=== PATIENT | male | born 1970 | race Caucasian/White ===

== ENCOUNTER 2017-11-06 06:54 | Emergency (ER) | payer BC ==
[~2017-11-06] VITALS: Ht 170.2 cm; Wt 99.8 kg
--- NOTE | 2017-11-06 07:02 | NUR ---
BIBRA 89 FROM HOME C/O CHEST PAIN, TINGLING FEELING ON LEFT ARM, FELT LIKE PASSING OUT 1 [employer] WHILE TAKING A MORNING SHOWER. PT STATES +N/V. AAOX4. SKIN WNL. VSS. PT PLACED ON MANAGER SHIP AND POX. RESP EVEN AND UNLABORED. NO S/S OF ACUTE DISTRES. PT DENIES HAVING ANY CHEST PAIN ON ARRIVAL. BEDSIDE FOR EVAL.
--- NOTE | 2017-11-06 07:09 | NUR ---
REPORT GIVEN TO KIRT GOVEA FOR [facility]
[2017-11-06 07:20] LABS: BASOPHILS % (AUTO) 0.6 % (0.0-2.0); EOSINOPHILS % (AUTO) 1.3 % (0.0-6.0); HEMATOCRIT 41 % (39-51); HEMOGLOBIN 14.2 g/dL (13.5-17.5); LYMPHOCYTES # (AUTO) 2.4 /CMM (0.8-4.8); LYMPHOCYTES % (AUTO) 49.6 % (20.0-44.0); MEAN CORPUSCULAR HEMOGLOBIN 30 PG (26.0-33.0); MEAN CORPUSCULAR HGB CONC 35 g/dl (31.0-36.0); MEAN CORPUSCULAR VOLUME 87 fL (80-96); MONOCYTES # (AUTO) 0.5 /CMM (0.1-1.30); MONOCYTES % (AUTO) 9.6 % (2.0-12.0); NEUTROPHILS # (AUTO) 1.9 /CMM (1.8-8.9); NEUTROPHILS % (AUTO) 38.9 % (43.0-81.0); PLATELET COUNT (AUTO) 245 /CMM (150-450); RDW COEFFICIENT OF VARIATION 12.9 (11.5-15.0); RED BLOOD CELL COUNT(AUTO) 4.72 MIL/uL (4.5-6.0); WHITE BLOOD COUNT (AUTO) 4.8 K/uL (4.3-11.0)
[2017-11-06 07:27] LABS: CALCIUM, SERUM 8.4 mg/dL (8.5-10.1); CARBON DIOXIDE 22 mmol/L (21-32); CHLORIDE 105 mmol/L (98-107); CREATININE 1.1 mg/dL (0.6-1.3); GLUCOSE 117 mg/dL (74-106); POTASSIUM 3.9 mmol/L (3.5-5.1); SODIUM SERUM 138 mmol/L (136-145); UREA NITROGEN, BLOOD 15 mg/dL (7-18)
[2017-11-06 07:32] LABS: INR 0.97 (0.87-1.13)
[2017-11-06 07:36] LABS: TROPONIN I < 0.017 ng/mL (0.00-0.056)
--- NOTE | 2017-11-06 07:50 | NUR ---
PT APPEARS TO BE RESTING COMFORTABLY WITH NO S/S OF PAIN OR DISTRESS. PT STATED THAT HIS CP IS INTERMITTENT AND APPROX 2-3/10 WHEN HE HAS IT. PT IS ON THE MONITOR AND CONTINUOUS PULSE OX.
[2017-11-06] MEDS ORDERED: KETOROLAC TROMETHAMINE INJ 30 MG/ML VIAL ONE (08:25)
[2017-11-06] MEDS ORDERED: KETOROLAC TROMETHAMINE INJ 30 MG/ML VIAL IM ONE (08:30)
[2017-11-06] MEDS ORDERED: KETOROLAC TROMETHAMINE INJ 30 MG/ML VIAL IV ONE (08:30)
--- NOTE | 2017-11-06 08:41 | NUR ---
Patient discharged to home in stable condition. Written and verbal after care instructions given. Patient verbalizes understanding of instruction. PT AMBULATED OUT WITH A STEADY GAIT. VSS.
[2017-11-06 08:44] VITALS: BP 129/92
== END 2017-11-06 08:40 | disposition home or self-care (01) ==
LOC: ER 06:56
DX: R07.2 Precordial pain (principal); E03.9 Hypothyroidism, unspecified; E78.00 Pure hypercholesterolemia, unspecified
CPT/HCPCS: 36415; 71045-TC; 80048-TC; 84443-TC; 84484-TC; 85025-TC; 85730-TC; A4606; J1885; Z7610